=== PATIENT | female | born 1955 | race African-American/Black ===

== ENCOUNTER 2016-08-19 07:53 | Emergency (ER) | payer BC ==
[~2016-08-19] VITALS: Ht 172.7 cm; Wt 87.0 kg
[2016-08-19] MEDS ORDERED: ASPIRIN 81MG TABLET PO STA (09:08)
[2016-08-19] MEDS ORDERED: NITROGLYCERIN 0.4MG TABLET SL SL PRN (09:15)
[2016-08-19 09:22] LABS: HEMATOCRIT. 39.8 % (36.0-48.0); HEMOGLOBIN. 12.6 g/dL (12.0-16.0); MEAN CORPUSCULAR HEMOGLOBIN 22.1 pg (28.0-32.0); MEAN CORPUSCULAR HGB CONC 31.6 g/dL (31.0-37.0); MEAN CORPUSCULAR VOLUME 69.7 fL (81.0-99.0); MEAN PLATELET VOLUME 8.5 fl (7.4-10.4); PLATELET 250 x1000/uL (130-400); RED BLOOD CELL COUNT 5.71 mill/uL (4.2-5.4); RED CELL DISTRIBUTION WIDTH 16.6 % (11.6-14.6)
[2016-08-19 09:23] LABS: DIFFERENTIAL COMMENT 1
[2016-08-19 09:38] LABS: ALANINE AMINOTRANSFERASE 32 IU/L (13-61); ALBUMIN 3.6 g/dL (3.4-5.0); ANION GAP 14; CALCIUM 8.7 mg/dL (8.5-10.1); CARBON DIOXIDE 28 mEq/L (21-32); CHLORIDE 108 mEq/L (98-107); INDEX HEMOLYSI 3 (1-3); INDEX ICTERIC 1 (1-4); INDEX LIPEMIC 1 (1-3); LIPASE 154 IU/L (73-393); NT PRO B-TYPE NATRIURETIC PEP 72 pg/mL (5-125); TROPONIN I < 0.02 ng/mL (0.00-0.04); UREA NITROGEN BLOOD 13 mg/dL (7-21); eGFR > 60 mL/min (>60)
[2016-08-19 09:41] LABS: D-DIMER 0.49 mg/L FEU (<0.50); PROTHROMBIN TIME 10.1 sec
[2016-08-19 10:21] LABS: ANISOCYTOSIS 2+; PLATELET ESTIMATE NORMAL
[2016-08-19 10:29] VITALS: BP 115/81
[2016-08-19] MEDS ORDERED: MORPHINE SULFATE 2 MG/ML CPJ (NOT FOR IM USE) IV PRN (11:45)
[2016-08-19] MEDS ORDERED: ACETAMINOPHEN 325MG TABLET PO PRN (11:45)
[2016-08-19] MEDS ORDERED: DOCUSATE SODIUM 100MG CAPSULE PO PRN (11:45)
[2016-08-19] MEDS ORDERED: MAGNESIUM/ALUMINUM HYDROXIDE/SIMETHICONE 30ML UDC PO PRN (11:45)
[2016-08-19] MEDS ORDERED: ENOXAPARIN 40MG/0.4ML SYR SUBCUT SCH (11:45)
[2016-08-19] MEDS ORDERED: CLONIDINE 0.1MG TABLET PO PRN (11:45)
[2016-08-19] MEDS ORDERED: ONDANSETRON HCL 4MG/2ML VIAL IV PRN (11:45)
[2016-08-19 12:02] LABS: MAGNESIUM 2.6 mg/dL (1.8-2.4)
[2016-08-20] MEDS ORDERED: ASPIRIN 81MG EC TABLET PO SCH (09:00)
== END 2016-08-19 12:05 | disposition left against medical advice (07) ==
LOC: ER 08:55 → SUPCPDRO 11:33 → ER 12:05
DX: R07.9 Chest pain, unspecified (principal); E11.9 Type 2 diabetes mellitus without complications; E78.00 Pure hypercholesterolemia, unspecified; J44.9 Chronic obstructive pulmonary disease, unspecified; I10 Essential (primary) hypertension; Z88.0 Allergy status to penicillin; M19.90 Unspecified osteoarthritis, unspecified site; Z87.891 Personal history of nicotine dependence
CPT/HCPCS: 36415; 71010; 80053; 82962; 83036; 83690; 83735; 83880; 84484; 85025; 85379; 85610; 85730; 93005; 99285; Z7610